=== PATIENT | male | born 1950 | race Caucasian/White ===

== ENCOUNTER 2019-08-09 17:16 | Inpatient (IN) ==
[2019-08-09] MEDS ORDERED: Isovue-370 500 ML BOTTLE IVP ONE ×2 (17:29→20:44)
[2019-08-09 17:55] LABS: Basophils # 0.1 K/mcL (0.0-0.2); Basophils % 0.6 %; Eosinophils # 0.1 K/mcL (0.0-0.6); Eosinophils % 0.9 %; Hematocrit 44.6 % (37.5-50.1); Hemoglobin 15.3 g/dL (12.9-16.9); Immature Granulocytes % 0.7 % (0-4); Lymphocytes # 1.6 K/mcL (0.6-4.6); Lymphocytes % 19.2 %; Mean Corpuscular HGB Conc 34.3 g/dL (31.6-35.5); Mean Corpuscular Volume 90.3 fL (83.0-100.0); Mean Platelet Volume 8.9 fL (9.4-12.4); Monocytes # 0.9 K/mcL (0.0-1.3); Monocytes % 10.1 %; Neutrophils # 5.8 K/mcL (1.6-8.9); Platelet Count 149 K/mcL (140-400); Red Blood Count 4.94 M/mcL (4.19-5.50); Red Cell Distribution Width 13.6 % (11.5-14.5); Segmented Neutrophils % 68.5 %; White Blood Count 8.5 K/mcL (4.3-11.1)
[2019-08-09 18:12] LABS: Prothrombin Time 11.4 Seconds (9.4-12.1)
[2019-08-09 18:15] LABS: Activated Partial Thrombo Time 32.4 Seconds (26.0-36.0); BUN/Creatinine Ratio 17 (6-26); Blood Urea Nitrogen 18 mg/dL (8-23); Calcium 9.5 mg/dL (8.6-10.3); Carbon Dioxide 24 mEq/L (23-29); Chloride 102 mEq/L (98-107); Glucose 85 mg/dL (70-105); Osmolality,Calculated 281 (280-300); Potassium 3.9 mEq/L (3.5-5.1); Sodium 135 mEq/L (136-145); Troponin I 0.03 ng/mL (< 0.04); eGFR For African Americans > 60 (> 60); eGFR For Non-African Americans > 60 (> 60)
[2019-08-09] MEDS ORDERED: *HR* Metoprolol 5 MG/5 ML VIAL IVP ONE (18:47)
[2019-08-09] MEDS ORDERED: lisinopriL 10 MG TABLET PO ONE (20:00)
[2019-08-09] MEDS ORDERED: *HR* OxyCODONE/APAP 5/325 TABLET PO ONE (20:19)
[2019-08-09] MEDS ORDERED: *HR* FentaNYL (PF) 100 MCG/2 ML VIAL IVP ONE (20:45)
[2019-08-09] MEDS ORDERED: *HR* Heparin 5,000 UNIT/ML VIAL IVP ONE (21:28)
[2019-08-09] MEDS ORDERED: *HR* Heparin 5,000 UNIT/ML VIAL IVP PRN ×2 (21:28)
[2019-08-09] MEDS: Heparin 25,000 UNIT/250 ML D5W 25,000 UNIT/250 ML IV.SOLN IVC SCH (21:41)
[2019-08-10] MEDS ORDERED: *HR* OxyCODONE/APAP 10/325 TABLET PO ONE (01:05)
[2019-08-10] MEDS ORDERED: *HR* OxyCODONE Immed Rel 5 MG TABLET PO PRN (01:53)
[2019-08-10] MEDS ORDERED: Ondansetron 4 MG/2 ML VIAL IVP PRN (01:53)
[2019-08-10] MEDS ORDERED: Acetaminophen 325 MG TABLET PO PRN ×2 (01:53)
[2019-08-10] MEDS ORDERED: Naloxone 0.4 MG/ML INJ IVP PRN (01:53)
[2019-08-10] MEDS ORDERED: *HR* Labetalol 20 MG/4 ML SYRINGE IVP PRN ×3 (01:53→18:00)
[2019-08-10] MEDS ORDERED: *HR* HYDROcodone/Acet 5/325 mg TABLET PO PRN ×2 (01:53)
[2019-08-10] MEDS: 0.9 % Sodium Chloride 1,000 ML IVC SCH ×2 (03:05→19:41)
[2019-08-10] MEDS: *HR* OxyCODONE Immed Rel 5 MG TABLET PO PRN ×2 (03:05→10:28)
[2019-08-10] MEDS: Aspirin Enteric Coated 81 MG Tablet PO SCH (03:05)
[2019-08-10 04:07] LABS: Basophils % 0.5 %; Eosinophils % 0.4 %; Hematocrit 45.6 % (37.5-50.1); Hemoglobin 15.3 g/dL (12.9-16.9); Immature Granulocytes % 0.4 % (0-4); Lymphocytes # 1.1 K/mcL (0.6-4.6); Lymphocytes % 13.2 %; Mean Corpuscular HGB Conc 33.6 g/dL (31.6-35.5); Mean Corpuscular Hemoglobin 30.4 pg (28.0-33.3); Mean Corpuscular Volume 90.5 fL (83.0-100.0); Mean Platelet Volume 9.6 fL (9.4-12.4); Monocytes # 0.7 K/mcL (0.0-1.3); Monocytes % 7.7 %; Neutrophils # 6.6 K/mcL (1.6-8.9); Platelet Count 171 K/mcL (140-400); Red Blood Count 5.04 M/mcL (4.19-5.50); Red Cell Distribution Width 13.6 % (11.5-14.5); Segmented Neutrophils % 77.8 %; White Blood Count 8.5 K/mcL (4.3-11.1)
[2019-08-10 04:21] LABS: BUN/Creatinine Ratio 15 (6-26); Blood Urea Nitrogen 15 mg/dL (8-23); Calcium 9.3 mg/dL (8.6-10.3); Carbon Dioxide 24 mEq/L (23-29); Chloride 100 mEq/L (98-107); Glucose 115 mg/dL (70-105); Osmolality,Calculated 278 (280-300); Sodium 133 mEq/L (136-145); eGFR For African Americans > 60 (> 60); eGFR For Non-African Americans > 60 (> 60)
[2019-08-10] MEDS: Ketorolac 15 MG/ML VIAL IVP SCH ×4 (05:05→23:03)
[2019-08-10] MEDS ORDERED: *HR* Metoprolol 5 MG/5 ML VIAL IVP SCH ×3 (06:00→18:00)
[2019-08-10] MEDS ORDERED: Regadenoson 0.4 MG/5 ML SYRINGE IVP ONE (06:07)
[2019-08-10] MEDS: Budesonide/Formoterol 160/4.5 1 PUFF INH IH SCH ×2 (07:43→20:03)
[2019-08-10] MEDS ORDERED: Aspirin Enteric Coated 81 MG Tablet PO SCH (09:00)
[2019-08-10] MEDS: Nicotine 21 MG PATCH.TD24 TD SCH (12:26)
[2019-08-10] MEDS: carvediloL 6.25 MG TABLET PO SCH (16:23)
[2019-08-10] MEDS: Heparin 25,000 UNIT/250 ML D5W 25,000 UNIT/250 ML IV.SOLN IVC SCH (23:04)
[2019-08-11 02:57] LABS: Basophils % 0.5 %; Eosinophils # 0.1 K/mcL (0.0-0.6); Eosinophils % 1.1 %; Hematocrit 40.1 % (37.5-50.1); Immature Granulocytes % 0.5 % (0-4); Lymphocytes # 1.4 K/mcL (0.6-4.6); Lymphocytes % 22.2 %; Mean Corpuscular HGB Conc 32.9 g/dL (31.6-35.5); Mean Corpuscular Hemoglobin 29.9 pg (28.0-33.3); Mean Corpuscular Volume 90.7 fL (83.0-100.0); Mean Platelet Volume 9.9 fL (9.4-12.4); Monocytes # 0.6 K/mcL (0.0-1.3); Monocytes % 9.5 %; Neutrophils # 4.2 K/mcL (1.6-8.9); Platelet Count 139 K/mcL (140-400); Red Blood Count 4.42 M/mcL (4.19-5.50); Red Cell Distribution Width 13.7 % (11.5-14.5); Segmented Neutrophils % 66.2 %; White Blood Count 6.4 K/mcL (4.3-11.1)
[2019-08-11 02:59] LABS: Hemoglobin 13.2 g/dL (12.9-16.9)
[2019-08-11 03:14] LABS: BUN/Creatinine Ratio 16 (6-26); Blood Urea Nitrogen 18 mg/dL (8-23); Calcium 8.6 mg/dL (8.6-10.3); Carbon Dioxide 24 mEq/L (23-29); Chloride 105 mEq/L (98-107); Glucose 101 mg/dL (70-105); Osmolality,Calculated 280 (280-300); Potassium 4.1 mEq/L (3.5-5.1); Sodium 134 mEq/L (136-145); eGFR For African Americans > 60 (> 60); eGFR For Non-African Americans > 60 (> 60)
[2019-08-11] MEDS: Ketorolac 15 MG/ML VIAL IVP SCH ×2 (05:28→16:46)
[2019-08-11] MEDS: carvediloL 6.25 MG TABLET PO SCH (07:49)
[2019-08-11] MEDS: Aspirin Enteric Coated 81 MG Tablet PO SCH (07:49)
[2019-08-11] MEDS: Nicotine 21 MG PATCH.TD24 TD SCH (07:49)
[2019-08-11] MEDS: Budesonide/Formoterol 160/4.5 1 PUFF INH IH SCH ×2 (07:57→20:23)
[2019-08-11] MEDS ORDERED: *HR* FentaNYL (PF) 100 MCG/2 ML VIAL ONE ×3 (08:16→15:56)
[2019-08-11] MEDS ORDERED: *HR* Midazolam HCl 2 MG/2 ML VIAL ONE (08:16)
[2019-08-11] MEDS ORDERED: Heparin 1,000 UNITS/500 mL 0 ML ONE ×2 (09:28→10:38)
[2019-08-11] MEDS ORDERED: Vancomycin 1,000 MG, Sodium Chloride IRRigation 1,000 ML IR ONE (09:40)
[2019-08-11] MEDS ORDERED: Vancomycin 1,000 MG VIAL ONE ×3 (09:40→14:45)
[2019-08-11] MEDS ORDERED: *HR* Phenylephrine 10 MG/ML VIAL ONE (09:42)
[2019-08-11] MEDS ORDERED: *HR* Rocuronium Bromide 50 MG/5 ML VIAL ONE ×2 (09:42→12:44)
[2019-08-11] MEDS ORDERED: Lidocaine -MPF 2% 2 ML VIAL ONE ×2 (09:42→09:50)
[2019-08-11] MEDS ORDERED: *HR* Propofol 200 MG/20 ML VIAL IVP ONE (09:42)
[2019-08-11] MEDS ORDERED: EPINEPHrine 1 MG/ML VIAL ONE (09:46)
[2019-08-11] MEDS ORDERED: EPHEDrine 50 MG/ML VIAL ONE (09:48)
[2019-08-11] MEDS ORDERED: Heparin 1,000 UNITS/500 mL 500 ML ONE (09:52)
[2019-08-11] MEDS ORDERED: *HR* Norepinephrine 4 MG/4 ML VIAL IVC ONE (10:25)
[2019-08-11] MEDS ORDERED: *HR* Vasopressin 20 UNIT/ML VIAL ONE (10:25)
[2019-08-11] MEDS ORDERED: 0.9 % Sodium Chloride 2,000 ML ONE (10:38)
[2019-08-11] MEDS ORDERED: *HR* Heparin 10,000 UNIT/10 ML VIAL ONE (10:38)
[2019-08-11] MEDS ORDERED: Nitroglycerin 1,000 MCG/10 ML VIAL IV ONE (10:38)
[2019-08-11] MEDS ORDERED: ISOVUE-370 200 ML INFUS..BTL ONE (10:38)
[2019-08-11] MEDS ORDERED: Clindamycin 900 MG/50 ML 900 MG/50 ML IV.SOLN IVPB ONE (10:47)
[2019-08-11] MEDS ORDERED: Clindamycin 600 MG/50 ML 600 MG/50 ML IV.SOLN IVPB ONE ×3 (10:58→17:00)
[2019-08-11 11:25] LABS: ABG Base Excess -1 mEq/L (-2 to 3); ABG Chloride 103 mEq/L (98-107); ABG Glucose 78 mg/dL (60-95); ABG HCO3 25 mEq/L (21-27); ABG Ionized Calcium 1.07 mmol/L (1.15-1.35); ABG Oxygen Saturation 100 % (95-98); ABG PCO2 43 mmHg (35-45); ABG PH 7.36 pH Units (7.32-7.45); ABG PO2 413 mmHg (85-104); ABG TCO2 26 mEq/L (20-26)
[2019-08-11] MEDS ORDERED: *HR* Heparin 5,000 UNIT/ML VIAL ONE ×2 (13:04→14:14)
[2019-08-11 14:11] LABS: ABG Base Excess -3 mEq/L (-2 to 3); ABG Chloride 105 mEq/L (98-107); ABG Glucose 162 mg/dL (60-95); ABG HCO3 24 mEq/L (21-27); ABG Ionized Calcium 1.16 mmol/L (1.15-1.35); ABG Oxygen Saturation 100 % (95-98); ABG PCO2 48 mmHg (35-45); ABG PH 7.31 pH Units (7.32-7.45); ABG PO2 420 mmHg (85-104); ABG TCO2 25 mEq/L (20-26)
[2019-08-11] MEDS ORDERED: *HR* Labetalol 20 MG/4 ML SYRINGE IVP ONE (15:55)
[2019-08-11] MEDS: 0.9 % Sodium Chloride 1,000 ML IVC SCH ×2 (16:46→17:54)
[2019-08-11] MEDS ORDERED: Acetaminophen 325 MG TABLET PO PRN (16:55)
[2019-08-11] MEDS ORDERED: Naloxone 0.4 MG/ML INJ IVP PRN (16:55)
[2019-08-11] MEDS ORDERED: Ondansetron 4 MG/2 ML VIAL IVP PRN (16:55)
[2019-08-11] MEDS ORDERED: *HR* Labetalol 20 MG/4 ML SYRINGE IVP PRN (16:55)
[2019-08-11] MEDS ORDERED: *HR* OxyCODONE Immed Rel 5 MG TABLET PO PRN (16:55)
[2019-08-11] MEDS ORDERED: *HR* HYDROcodone/Acet 5/325 mg TABLET PO PRN (16:55)
[2019-08-11] MEDS ORDERED: Ketorolac 15 MG/ML VIAL IVP SCH (18:00)
[2019-08-12 03:25] LABS: Basophils % 0.1 %; Hemoglobin 13.7 g/dL (12.9-16.9); Immature Granulocytes % 0.3 % (0-4); Red Cell Distribution Width 13.5 % (11.5-14.5)
[2019-08-12 03:27] LABS: Hematocrit 40.2 % (37.5-50.1); Immature Platelets 3.6 % (1.1-6.1); Lymphocytes # 0.4 K/mcL (0.6-4.6); Lymphocytes % 5.5 %; Mean Corpuscular HGB Conc 34.1 g/dL (31.6-35.5); Mean Corpuscular Hemoglobin 31.1 pg (28.0-33.3); Mean Corpuscular Volume 91.2 fL (83.0-100.0); Mean Platelet Volume 9.9 fL (9.4-12.4); Monocytes # 0.7 K/mcL (0.0-1.3); Platelet Count 118 K/mcL (140-400); Red Blood Count 4.41 M/mcL (4.19-5.50); Segmented Neutrophils % 85.1 %; White Blood Count 7.7 K/mcL (4.3-11.1)
[2019-08-12 03:30] LABS: BUN/Creatinine Ratio 19 (6-26); Blood Urea Nitrogen 25 mg/dL (8-23); Carbon Dioxide 20 mEq/L (23-29); Chloride 110 mEq/L (98-107); Glucose 111 mg/dL (70-105); Osmolality,Calculated 289 (280-300); Potassium 4.5 mEq/L (3.5-5.1); Sodium 137 mEq/L (136-145); eGFR For African Americans > 60 (> 60); eGFR For Non-African Americans 54 (> 60)
[2019-08-12 03:55] LABS: Neutrophils # 6.6 K/mcL (1.6-8.9)
[2019-08-12 03:56] LABS: Platelet Estimate Slight Decrease (Normal)
[2019-08-12] MEDS ORDERED: *HR* Heparin 5,000 UNIT/ML VIAL SQ SCH (06:00)
[2019-08-12] MEDS: 0.9 % Sodium Chloride 1,000 ML IVC SCH ×2 (08:41→15:13)
[2019-08-12] MEDS ORDERED: Nicotine 21 MG PATCH.TD24 TD SCH (09:00)
[2019-08-12] MEDS ORDERED: Aspirin Enteric Coated 81 MG Tablet PO SCH (09:00)
[2019-08-12] MEDS ORDERED: Heparin 1,000 UNITS/500 mL 1,500 ML ONE (09:16)
[2019-08-12] MEDS: Budesonide/Formoterol 160/4.5 1 PUFF INH IH SCH ×2 (09:24→19:57)
[2019-08-12] MEDS ORDERED: *HR* FentaNYL (PF) 100 MCG/2 ML VIAL ONE (09:53)
[2019-08-12] MEDS ORDERED: Lidocaine -MPF 2% 2 ML VIAL ONE ×2 (09:53→09:55)
[2019-08-12] MEDS ORDERED: *HR* Propofol 200 MG/20 ML VIAL IVP ONE ×2 (09:53→09:54)
[2019-08-12] MEDS ORDERED: *HR* Midazolam HCl 2 MG/2 ML VIAL ONE (09:53)
[2019-08-12] MEDS ORDERED: Lidocaine HCL 4 ML Topical Solution (Laryng-O-Jet Kit Sterile Pak) TP ONE (09:55)
[2019-08-12] MEDS ORDERED: *HR* Succinylcholine 200 MG/10 ML VIAL IVP ONE (09:55)
[2019-08-12] MEDS ORDERED: *HR* Rocuronium Bromide 50 MG/5 ML VIAL ONE (09:55)
[2019-08-12] MEDS ORDERED: Ondansetron 4 MG/2 ML VIAL ONE (09:55)
[2019-08-12] MEDS ORDERED: *HR* Phenylephrine 10 MG/ML VIAL ONE (09:57)
[2019-08-12] MEDS ORDERED: CeFAZolin Syr 2,000MG/20 ML 2,000 MG/20 ML SYRINGE IVPB ONE (10:00)
[2019-08-12] MEDS ORDERED: Vancomycin 1,000 MG, Sodium Chloride IRRigation 1,000 ML IR ONE (10:00)
[2019-08-12] MEDS ORDERED: *HR* Vasopressin 20 UNIT/ML VIAL ONE (10:02)
[2019-08-12] MEDS ORDERED: *HR* Norepinephrine 4 MG/4 ML VIAL IVC ONE (10:22)
[2019-08-12] MEDS ORDERED: Clindamycin 600 MG/50 ML 600 MG/50 ML IV.SOLN IVPB ONE ×2 (11:05→12:12)
[2019-08-12] MEDS ORDERED: *HR* Heparin 5,000 UNIT/ML VIAL ONE (11:31)
[2019-08-12] MEDS ORDERED: Albumin Human 5% 25.0 GM/500 ML IV.SOLN ONE (11:35)
[2019-08-12] MEDS ORDERED: Dexamethasone 4 MG/ML VIAL ONE (11:54)
[2019-08-12] MEDS ORDERED: Protamine Sulfate 50 MG/5 ML VIAL IVP ONE (13:20)
[2019-08-12] MEDS ORDERED: *HR* Labetalol 20 MG/4 ML SYRINGE IVP ONE (14:11)
[2019-08-12] MEDS ORDERED: *HR* HYDROcodone/Acet 5/325 mg TABLET PO PRN (14:38)
[2019-08-12] MEDS ORDERED: Naloxone 0.4 MG/ML INJ IVP PRN (14:38)
[2019-08-12] MEDS ORDERED: Acetaminophen 325 MG TABLET PO PRN (14:38)
[2019-08-12] MEDS ORDERED: *HR* OxyCODONE Immed Rel 5 MG TABLET PO PRN (14:38)
[2019-08-12] MEDS: *HR* Labetalol 20 MG/4 ML SYRINGE IVP PRN (16:35)
[2019-08-13 02:34] LABS: Hematocrit 30.4 % (37.5-50.1); Hemoglobin 9.9 g/dL (12.9-16.9); Immature Granulocytes % 0.4 % (0-4); Lymphocytes # 0.5 K/mcL (0.6-4.6); Lymphocytes % 8.2 %; Mean Corpuscular HGB Conc 32.6 g/dL (31.6-35.5); Mean Corpuscular Volume 95.3 fL (83.0-100.0); Monocytes # 0.7 K/mcL (0.0-1.3); Monocytes % 12.6 %; Neutrophils # 4.3 K/mcL (1.6-8.9); Red Blood Count 3.19 M/mcL (4.19-5.50); Red Cell Distribution Width 13.7 % (11.5-14.5); Segmented Neutrophils % 78.8 %; White Blood Count 5.5 K/mcL (4.3-11.1)
[2019-08-13 02:37] LABS: Platelet Count 91 K/mcL (140-400)
[2019-08-13 03:03] LABS: BUN/Creatinine Ratio 30 (6-26); Blood Urea Nitrogen 25 mg/dL (8-23); Calcium 5.8 mg/dL (8.6-10.3); Carbon Dioxide 19 mEq/L (23-29); Chloride 118 mEq/L (98-107); Glucose 97 mg/dL (70-105); Osmolality,Calculated 310 (280-300); Potassium 3.5 mEq/L (3.5-5.1); Sodium 148 mEq/L (136-145); eGFR For African Americans > 60 (> 60); eGFR For Non-African Americans > 60 (> 60)
[2019-08-13 03:08] LABS: Platelet Estimate Slight Decrease (Normal)
[2019-08-13] MEDS ORDERED: Calcium Chloride 2,000 MG in 0.9 % Sodium Chloride 100 ML IVPB ONE (03:26)
[2019-08-13] MEDS: 0.9 % Sodium Chloride 1,000 ML IVC SCH (04:06)
[2019-08-13] MEDS: *HR* Labetalol 20 MG/4 ML SYRINGE IVP PRN (05:40)
[2019-08-13] MEDS: Ketorolac 15 MG/ML VIAL IVP SCH ×4 (06:14→23:28)
[2019-08-13] MEDS: Budesonide/Formoterol 160/4.5 1 PUFF INH IH SCH ×2 (07:46→20:04)
[2019-08-13] MEDS ORDERED: D5% in 0.45% NACL w KCl 20 MEQ/1,000 ML MLS IVC SCH (08:00)
[2019-08-13] MEDS ORDERED: Aspirin Enteric Coated 81 MG Tablet PO SCH (09:00)
[2019-08-13] MEDS ORDERED: Nicotine 21 MG PATCH.TD24 TD SCH (09:00)
[2019-08-13] MEDS ORDERED: Naloxone 0.4 MG/ML INJ IVP PRN (17:24)
[2019-08-13] MEDS ORDERED: *HR* HYDROcodone/Acet 5/325 mg TABLET PO PRN (17:24)
[2019-08-13] MEDS ORDERED: *HR* OxyCODONE Immed Rel 5 MG TABLET PO PRN (17:24)
[2019-08-13] MEDS ORDERED: *HR* Labetalol 20 MG/4 ML SYRINGE IVP PRN (17:24)
[2019-08-13] MEDS ORDERED: Acetaminophen 325 MG TABLET PO PRN (17:24)
[2019-08-13] MEDS: *HR* Metoprolol 5 MG/5 ML VIAL IVP SCH ×2 (18:08→23:28)
[2019-08-14] MEDS: D5% in 0.45% NACL w KCl 20 MEQ/1,000 ML MLS IVC SCH ×3 (02:19→11:30)
[2019-08-14] MEDS: Ketorolac 15 MG/ML VIAL IVP SCH ×3 (05:18→18:14)
[2019-08-14] MEDS: *HR* Metoprolol 5 MG/5 ML VIAL IVP SCH ×3 (05:19→18:14)
[2019-08-14] MEDS ORDERED: Aspirin Enteric Coated 81 MG Tablet PO SCH (09:00)
[2019-08-14] MEDS ORDERED: Nicotine 21 MG PATCH.TD24 TD SCH (09:00)
[2019-08-14] MEDS ORDERED: *HR* HYDROcodone/Acet 5/325 mg TABLET PO PRN (10:21)
[2019-08-14] MEDS ORDERED: Acetaminophen 325 MG TABLET PO PRN (10:21)
[2019-08-14] MEDS ORDERED: Naloxone 0.4 MG/ML INJ IVP PRN (10:21)
[2019-08-14] MEDS ORDERED: *HR* OxyCODONE Immed Rel 5 MG TABLET PO PRN (10:21)
[2019-08-14] MEDS: Budesonide/Formoterol 160/4.5 1 PUFF INH IH SCH ×2 (19:43→20:02)
[2019-08-15] MEDS: Ketorolac 15 MG/ML VIAL IVP SCH ×2 (00:26→06:07)
[2019-08-15] MEDS: *HR* Metoprolol 5 MG/5 ML VIAL IVP SCH ×4 (00:26→17:41)
[2019-08-15] MEDS: D5% in 0.45% NACL w KCl 20 MEQ/1,000 ML MLS IVC SCH (03:25)
[2019-08-15 04:42] LABS: Hematocrit 37.2 % (37.5-50.1); Mean Corpuscular HGB Conc 32.8 g/dL (31.6-35.5); Mean Corpuscular Volume 94.4 fL (83.0-100.0); Mean Platelet Volume 10.5 fL (9.4-12.4); Platelet Count 113 K/mcL (140-400); Red Blood Count 3.94 M/mcL (4.19-5.50); Red Cell Distribution Width 13.5 % (11.5-14.5); White Blood Count 5.6 K/mcL (4.3-11.1)
[2019-08-15 04:43] LABS: Hemoglobin 12.2 g/dL (12.9-16.9)
[2019-08-15 05:18] LABS: Alanine Aminotransferase 22 Units/L (7-52); Albumin 2.3 g/dL (3.5-5.7); Albumin/Globulin Ratio 1.2 (1.1-2.2); Alkaline Phosphatase 51 Units/L (34-104); Aspartate Amino Transferase 69 Units/L (13-39); BUN/Creatinine Ratio 36 (6-26); Bilirubin,Total 1.1 mg/dL (0.3-1.0); Blood Urea Nitrogen 34 mg/dL (8-23); Calcium 7.4 mg/dL (8.6-10.3); Carbon Dioxide 16 mEq/L (23-29); Chloride 107 mEq/L (98-107); Globulin 1.9 g/dL (2.4-3.5); Glucose 90 mg/dL (70-105); Osmolality,Calculated 283 (280-300); Potassium 4.5 mEq/L (3.5-5.1); Sodium 133 mEq/L (136-145); Total Protein 4.2 g/dL (6.4-8.9); eGFR For African Americans > 60 (> 60); eGFR For Non-African Americans > 60 (> 60)
[2019-08-15] MEDS: Aspirin Enteric Coated 81 MG Tablet PO SCH (07:44)
[2019-08-15] MEDS: Nicotine 21 MG PATCH.TD24 TD SCH (07:44)
[2019-08-15] MEDS ORDERED: *HR* Metoprolol 5 MG/5 ML VIAL IVP SCH ×2 (09:00)
[2019-08-15] MEDS: Budesonide/Formoterol 160/4.5 1 PUFF INH IH SCH ×2 (10:04→20:17)
[2019-08-15] MEDS: *HR* Labetalol 20 MG/4 ML SYRINGE IVP PRN ×3 (13:21→19:42)
[2019-08-15] MEDS: carvediloL 6.25 MG TABLET PO SCH (16:28)
[2019-08-15] MEDS ORDERED: carvediloL 6.25 MG TABLET PO SCH ×3 (17:00)
[2019-08-16] MEDS: Aspirin Enteric Coated 81 MG Tablet PO SCH (07:20)
[2019-08-16] MEDS: Nicotine 21 MG PATCH.TD24 TD SCH (07:20)
[2019-08-16] MEDS: carvediloL 6.25 MG TABLET PO SCH (07:20)
[2019-08-16] MEDS: Budesonide/Formoterol 160/4.5 1 PUFF INH IH SCH (07:45)
[2019-08-16 10:21] VITALS: BP 163/84
== END 2019-08-16 14:27 | disposition home or self-care (01) | DRG 269 ==
LOC: EMEROOARM 17:16 → 3NENU 17:16 → ICNU 08-11 10:18 → 3NENU 08-15 18:21
PROVIDERS: ADMIT Surgery; ATTEND Surgery

== ENCOUNTER 2021-10-04 19:02 | Observation (INO) ==
[2021-10-04 21:35] LABS: Immature Granulocytes % 0.6 % (0-4); Red Cell Distribution Width 23.2 % (11.5-14.5)
[2021-10-04 21:37] LABS: Basophils % 0.6 %; Eosinophils # 0.1 K/mcL (0.0-0.6); Eosinophils % 4.3 %; Hematocrit 17.1 % (37.5-50.1); INR 1.3; Lymphocytes # 0.6 K/mcL (0.6-4.6); Lymphocytes % 18.3 %; Mean Corpuscular HGB Conc 29.2 g/dL (31.6-35.5); Mean Corpuscular Hemoglobin 27.8 pg (28.0-33.3); Mean Platelet Volume 9.9 fL (9.4-12.4); Monocytes # 0.3 K/mcL (0.0-1.3); Monocytes % 10.2 %; Neutrophils # 2.1 K/mcL (1.6-8.9); Nucleated Red Blood Cells 0.6 /100 WBC (0); Platelet Count 141 K/mcL (140-400); Prothrombin Time 14.7 Seconds (9.4-12.1); White Blood Count 3.2 K/mcL (4.3-11.1)
[2021-10-04 21:56] LABS: Hypochromasia Present (Not Present)
[2021-10-04 22:01] LABS: Alanine Aminotransferase 7 Units/L (7-52); Albumin 3.2 g/dL (3.5-5.7); Albumin/Globulin Ratio 1.4 (1.1-2.2); Alkaline Phosphatase 66 Units/L (34-104); Aspartate Amino Transferase 15 Units/L (13-39); BUN/Creatinine Ratio 20 (6-26); Bilirubin,Total 0.6 mg/dL (0.3-1.0); Blood Urea Nitrogen 23 mg/dL (8-23); Calcium 8.6 mg/dL (8.6-10.3); Carbon Dioxide 28 mEq/L (23-29); Chloride 99 mEq/L (98-107); Globulin 2.3 g/dL (2.4-3.5); Glucose 91 mg/dL (70-105); Osmolality,Calculated 283 (280-300); Potassium 4.4 mEq/L (3.5-5.1); Sodium 135 mEq/L (136-145); Total Protein 5.5 g/dL (6.4-8.9); Troponin I < 0.03 ng/mL (< 0.04); eGFR For African Americans > 60 (> 60); eGFR For Non-African Americans > 60 (> 60)
[2021-10-04] MEDS ORDERED: Azithromycin 500 MG in 0.9 % Sodium Chloride 250 ML IVPB ONE (22:45)
[2021-10-04] MEDS ORDERED: cefTRIAXone 1,000 MG in 0.9 % Sodium Chloride 10 ML IVP ONE (22:45)
[2021-10-04] MEDS ORDERED: 0.9 % Sodium Chloride 250 ML ONE (23:46)
[2021-10-05] MEDS ORDERED: *HR* HYDROcodone/Acet 5/325 mg TABLET PO PRN (00:40)
[2021-10-05] MEDS ORDERED: Acetaminophen 325 MG TABLET PO PRN (00:40)
[2021-10-05] MEDS ORDERED: Melatonin 3 MG TABLET PO PRN (00:40)
[2021-10-05] MEDS ORDERED: Naloxone 0.4 MG/ML INJ IVP PRN (00:40)
[2021-10-05] MEDS ORDERED: Ondansetron 4 MG/2 ML VIAL IVP PRN (00:40)
[2021-10-05] MEDS: Ipratropium/Albuterol Neb 3 ML IH SCH ×4 (03:39→15:58)
[2021-10-05] MEDS: Budesonide/Formoterol 160/4.5 1 PUFF INH IH SCH ×2 (07:26→20:05)
[2021-10-05] MEDS: carvediloL 6.25 MG TABLET PO SCH ×2 (08:04→17:38)
[2021-10-05] MEDS: Nicotine 21 MG PATCH.TD24 TD SCH (08:04)
[2021-10-05] MEDS: Chlorhexidine Rinse 15 ML MOUTHWASH MM SCH ×2 (08:04→19:55)
[2021-10-05] MEDS: Gabapentin 300 MG CAPSULE PO SCH ×3 (08:04→19:56)
[2021-10-05 09:56] LABS: Eosinophils # 0.2 K/mcL (0.0-0.6); Eosinophils % 3.6 %; Hematocrit 24.6 % (37.5-50.1); Immature Granulocytes % 0.5 % (0-4); Lymphocytes # 0.5 K/mcL (0.6-4.6); Lymphocytes % 12.2 %; Mean Corpuscular HGB Conc 31.7 g/dL (31.6-35.5); Mean Corpuscular Hemoglobin 29.2 pg (28.0-33.3); Mean Corpuscular Volume 92.1 fL (83.0-100.0); Mean Platelet Volume 9.2 fL (9.4-12.4); Monocytes # 0.3 K/mcL (0.0-1.3); Monocytes % 7.3 %; Neutrophils # 3.1 K/mcL (1.6-8.9); Platelet Count 112 K/mcL (140-400); Red Blood Count 2.67 M/mcL (4.19-5.50); Red Cell Distribution Width 19.4 % (11.5-14.5); Segmented Neutrophils % 75.4 %; White Blood Count 4.1 K/mcL (4.3-11.1)
[2021-10-05 10:02] LABS: Hemoglobin 7.8 g/dL (12.9-16.9)
[2021-10-05 10:06] LABS: INR 1.2; Prothrombin Time 13.4 Seconds (9.4-12.1)
[2021-10-05 10:17] LABS: BUN/Creatinine Ratio 21 (6-26); Blood Urea Nitrogen 24 mg/dL (8-23); Calcium 8.1 mg/dL (8.6-10.3); Carbon Dioxide 27 mEq/L (23-29); Chloride 102 mEq/L (98-107); Glucose 95 mg/dL (70-105); Osmolality,Calculated 284 (280-300); Potassium 4.2 mEq/L (3.5-5.1); Sodium 135 mEq/L (136-145); eGFR For African Americans > 60 (> 60); eGFR For Non-African Americans > 60 (> 60)
[2021-10-05 10:18] LABS: Phosphorous 3.7 mg/dL (2.7-4.5)
[2021-10-05 10:19] LABS: % Iron Saturation 14 % (20-55); Iron 57 mcg/dL (65-175); Transferrin 301 mg/dL (203-362)
[2021-10-05 10:37] LABS: Ferritin 29 ng/mL (20-250)
[2021-10-05 10:42] LABS: Folate 21.2 ng/mL (3.0-16.0)
[2021-10-05] MEDS ORDERED: Iron Sucrose Complex 400 MG in 0.9 % Sodium Chloride 250 ML IVPB ONE (14:42)
[2021-10-05] MEDS ORDERED: *HR* Rivaroxaban 10 MG TABLET PO SCH (17:00)
[2021-10-05] MEDS ORDERED: Ipratropium/Albuterol Neb 3 ML IH PRN (17:40)
[2021-10-06 02:14] LABS: Basophils % 0.5 %; Eosinophils # 0.3 K/mcL (0.0-0.6); Eosinophils % 6.5 %; Hematocrit 24.6 % (37.5-50.1); Hemoglobin 7.7 g/dL (12.9-16.9); Immature Granulocytes % 0.3 % (0-4); Lymphocytes # 0.6 K/mcL (0.6-4.6); Lymphocytes % 13.8 %; Mean Corpuscular HGB Conc 31.3 g/dL (31.6-35.5); Mean Corpuscular Hemoglobin 28.9 pg (28.0-33.3); Mean Corpuscular Volume 92.5 fL (83.0-100.0); Mean Platelet Volume 9.9 fL (9.4-12.4); Monocytes # 0.5 K/mcL (0.0-1.3); Monocytes % 11.3 %; Neutrophils # 2.7 K/mcL (1.6-8.9); Platelet Count 106 K/mcL (140-400); Red Blood Count 2.66 M/mcL (4.19-5.50); Red Cell Distribution Width 19.7 % (11.5-14.5); Segmented Neutrophils % 67.6 %
[2021-10-06] MEDS ORDERED: Iron Sucrose Complex 200 MG in 0.9 % Sodium Chloride 100 ML IVPB ONE (07:22)
[2021-10-06] MEDS: Budesonide/Formoterol 160/4.5 1 PUFF INH IH SCH (07:44)
[2021-10-06] MEDS: Gabapentin 300 MG CAPSULE PO SCH (07:54)
[2021-10-06] MEDS: Nicotine 21 MG PATCH.TD24 TD SCH (07:55)
[2021-10-06] MEDS: carvediloL 6.25 MG TABLET PO SCH (07:55)
[2021-10-06] MEDS: Chlorhexidine Rinse 15 ML MOUTHWASH MM SCH (07:57)
[2021-10-06] MEDS ORDERED: hydroCHLOROthiazide 25 MG TABLET PO SCH (09:00)
[2021-10-06] MEDS ORDERED: lisinopriL 10 MG TABLET PO SCH (09:00)
[2021-10-06 11:35] VITALS: BP 107/57; PULSE 60; TEMP 97.7; O2SAT 91
[2021-10-06 12:22] LABS: Retculocyte # 0.18 M/mcL (0.05-0.10)
[2021-10-06 12:29] LABS: Hematocrit 25.5 % (37.5-50.1); Hemoglobin 7.9 g/dL (12.9-16.9)
== END 2021-10-06 14:00 | disposition home or self-care (01) ==
LOC: EMEROOARM 19:02 → 2ANU 19:02 → SUATTDRO 23:52 → 2ANU 10-05 00:44
PROVIDERS: ADMIT Internal Medicine; ATTEND Internal Medicine